=== PATIENT | male | born 1995 | race Caucasian/White ===

== ENCOUNTER → 2017-08-12 | Outpatient (CLI) | payer OTHER | LOC: BMCIMAGING 18:28 | PROVIDERS: ATTEND Family Medicine | DX: S43.101A Unspecified dislocation of right acromioclavicular joint, initial encounter (principal) ==

== ENCOUNTER → 2017-09-15 | Outpatient (CLI) | payer OTHER | LOC: BMCIMAGING 08:49 | PROVIDERS: ATTEND Orthopaedic Surgery Hand Surgery | DX: S43.101A Unspecified dislocation of right acromioclavicular joint, initial encounter (principal) ==